=== PATIENT | male | born 1940 | race Caucasian/White ===

== ENCOUNTER 2023-01-10 08:00 | Outpatient (RCR) | payer MEDICARE, BC, SELFPAY | END 2023-01-26 16:07 | disposition home or self-care (01) | PROVIDERS: PCP Family Medicine | DX: M72.0 Palmar fascial fibromatosis [Dupuytren] (principal); Z51.89 Encounter for other specified aftercare | CPT/HCPCS: 97035; 97110; 97140; 97165; L3913; X5282 ==